=== PATIENT | male | born 1985 | race Caucasian/White ===

== ENCOUNTER 2023-05-13 12:54 | Emergency (ER) | payer SELFPAY ==
[2023-05-13] MEDS ORDERED: Ibuprofen 600 MG Tab PO ONE (13:09)
[2023-05-13] MEDS ORDERED: Ondansetron 4 MG Tab.DIS PO ONE (13:09)
[2023-05-13 14:26] LABS: CORONAVIRUS COVID-19 NAA NEGATIVE (NEGATIVE); INFLUENZA A NAA NEGATIVE (NEGATIVE); INFLUENZA B NAA NEGATIVE (NEGATIVE); RESPIRATORY SYNCYTIAL VIR NAA NEGATIVE (NEGATIVE)
[2023-05-13] MEDS ORDERED: Amoxicillin/Clavulanate K 875-125 MG Tab PO ONE (14:27)
== END 2023-05-13 14:41 | disposition home or self-care (01) ==
LOC: MW.ED 12:54
DX: J02.9 Acute pharyngitis, unspecified (principal); Z02.89 Encounter for other administrative examinations; Z20.822 Contact with and (suspected) exposure to COVID-19
CPT/HCPCS: 0241U; 87651; 99283; A9270